=== PATIENT | female | born 1955 | race Caucasian/White ===

== ENCOUNTER 2023-10-21 21:07 | Inpatient (IN) | payer BC ==
[2023-10-21 21:15] VITALS: TEMP 97.9; BMI 24.5
[2023-10-22] MEDS ORDERED: METOCLOPRAMIDE HCL INJECTION 10 MG/2 ML VIAL IVPB ONE (00:18)
[2023-10-22] MEDS ORDERED: MECLIZINE HCL 25 MG TABLET (FP) PO ONE (00:18)
[2023-10-22] MEDS ORDERED: ACETAMINOPHEN 1000 MG/100 ML BAG IVPB ONE (00:18)
[2023-10-22] MEDS ORDERED: SODIUM CHLORIDE 0.9% 500 ML INFUS.BAG IV ONE (00:18)
[2023-10-22 00:47] LABS: BASO % 0.4 % (0-2.0); EOS % 0.5 % (0-4.5); HEMATOCRIT 40.2 % (32.4-45.2); HEMOGLOBIN 13.5 GM/dL (10.7-15.3); LYMPH % 24.1 % (8-40); MCH 28.5 pg (25.7-33.7); MCHC 33.6 g/dl (32.0-36.0); MEAN CELL VOLUME 84.7 fl (80-96); MEAN PLT VOLUME 8.1 fl (7.5-11.1); MONO % 6.7 % (3.8-10.2); NEUT % 68.3 % (42.8-82.8); PLATELET COUNT 381 10^3/uL (134-434); RBC 4.74 M/mm3 (3.60-5.2); RDW 13.1 % (11.6-15.6); WHITE BLOOD COUNT 9.8 K/mm3 (4.0-10.0)
[2023-10-22] MEDS ORDERED: METOCLOPRAMIDE HCL INJECTION 10 MG/2 ML VIAL ONE (00:49)
[2023-10-22] MEDS ORDERED: ACETAMINOPHEN INJECTION 100 ML IVPB ONE (00:49)
[2023-10-22] MEDS ORDERED: MECLIZINE HCL 25 MG TABLET (FP) ONE (00:49)
[2023-10-22 00:54] LABS: INR 1.11 (0.83-1.09); PROTHROMBIN TIME (PATIENT) 12.9 SEC (9.7-13.0)
[2023-10-22 00:57] LABS: ACTIVATED PTT 31.2 SECONDS (25.2-36.5)
[2023-10-22 01:04] LABS: POTASSIUM 3.4 mmol/L (3.5-5.1)
[2023-10-22 01:06] LABS: ALBUMIN 4.2 g/dl (3.4-5.0); BLOOD UREA NITROGEN 12.4 mg/dL (7-18); CALCIUM 9.3 mg/dL (8.5-10.1)
[2023-10-22 01:09] LABS: CREATININE 0.9 mg/dL (0.55-1.3)
[2023-10-22 01:11] LABS: BILIRUBIN,TOTAL 0.4 mg/dL (0.2-1); TOT PROT 8.4 g/dl (6.4-8.2)
[2023-10-22] MEDS ORDERED: ONDANSETRON 4 MG/2 ML VIAL IVPUSH ONE ×2 (02:40→03:59)
[2023-10-22] MEDS ORDERED: ONDANSETRON 4 MG/2 ML VIAL ONE ×2 (02:49→04:49)
[2023-10-22] MEDS ORDERED: ATORVASTATIN CA 80 MG TABLET (FP) PO ONE (03:28)
[2023-10-22] MEDS ORDERED: ASPIRIN 325 MG TABLET PO ONE (03:28)
[2023-10-22] MEDS ORDERED: ATORVASTATIN CA 80 MG TABLET (FP) ONE (03:52)
[2023-10-22] MEDS ORDERED: ASPIRIN 81 MG CHEWABLE TABLETS ONE (03:52)
[2023-10-22] MEDS ORDERED: KCL 10 MEQ IVPB 10 MEQ/100 ML INFUS.BAG IVPB ONE (06:50)
[2023-10-22] MEDS ORDERED: POTASSIUM CHLORIDE TABS 20 MEQ TABLET.ER (FP) PO ONE (06:50)
[2023-10-22 06:58] LABS: MAGNESIUM 2.4 mg/dL (1.8-2.4)
[2023-10-22] MEDS: POTASSIUM CHLORIDE TABS 20 MEQ TABLET.ER (FP) PO ONE ×2 (06:58→09:14)
[2023-10-22] MEDS: KCL 10 MEQ IVPB 10 MEQ/100 ML INFUS.BAG IVPB SCH ×2 (06:58→09:14)
[2023-10-22] MEDS ORDERED: LACTATED RINGERS SOLUTION 1,000 ML/1,000 ML INFUS.BAG IV SCH (07:00)
[2023-10-22 07:26] LABS: BASO % 0.3 % (0-2.0); EOS % 0.2 % (0-4.5); HEMATOCRIT 36.4 % (32.4-45.2); HEMOGLOBIN 12.2 GM/dL (10.7-15.3); LYMPH % 14.9 % (8-40); MCH 28.4 pg (25.7-33.7); MCHC 33.6 g/dl (32.0-36.0); MEAN CELL VOLUME 84.3 fl (80-96); MEAN PLT VOLUME 8.2 fl (7.5-11.1); MONO % 5.3 % (3.8-10.2); NEUT % 79.3 % (42.8-82.8); PLATELET COUNT 332 10^3/uL (134-434); RBC 4.31 M/mm3 (3.60-5.2); RDW 13.2 % (11.6-15.6); WHITE BLOOD COUNT 7.6 K/mm3 (4.0-10.0)
[2023-10-22 07:43] LABS: POTASSIUM 3.9 mmol/L (3.5-5.1)
[2023-10-22 07:46] LABS: CALCIUM 8.7 mg/dL (8.5-10.1); MAGNESIUM 2.2 mg/dL (1.8-2.4)
[2023-10-22 07:49] LABS: ALBUMIN 3.4 g/dl (3.4-5.0); BLOOD UREA NITROGEN 10.2 mg/dL (7-18)
[2023-10-22 07:50] LABS: CREATININE 0.8 mg/dL (0.55-1.3)
[2023-10-22 07:52] LABS: PHOSPHOROUS 2.9 mg/dL (2.5-4.9); TOT PROT 6.9 g/dl (6.4-8.2)
[2023-10-22 07:53] LABS: BILIRUBIN,TOTAL 0.8 mg/dL (0.2-1)
[2023-10-22] MEDS ORDERED: LEVOTHYROXINE NA 50 MCG TABLET (FP) PO SCH ×2 (08:00→10:00)
[2023-10-22] MEDS ORDERED: HEPARIN NA (PORCINE) 5,000 UNITS/ML 1ML VIAL ONE (09:18)
[2023-10-22] MEDS ORDERED: LEVOTHYROXINE NA 50 MCG TABLET (FP) ONE (09:18)
[2023-10-22] MEDS: HEPARIN NA (PORCINE) 5,000 UNITS/ML 1ML VIAL SQ SCH ×2 (09:28→14:16)
[2023-10-22 09:47] VITALS: BP 123/69; PULSE 53; RESP 18
[2023-10-22] MEDS ORDERED: ATORVASTATIN CA 10 MG TABLET (FP) PO SCH (22:00)
== END 2023-10-22 15:50 | disposition home or self-care (01) | DRG 149 ==
LOC: JER 21:07 → JERBED 10-22 05:01 → OBSVTOIN 10-22 05:16
PROVIDERS: ADMIT Internal Medicine; ATTEND Internal Medicine
DX: R42 Dizziness and giddiness (principal); E83.42 Hypomagnesemia; I65.22 Occlusion and stenosis of left carotid artery; E03.9 Hypothyroidism, unspecified; I10 Essential (primary) hypertension; E78.5 Hyperlipidemia, unspecified; E87.6 Hypokalemia; R26.81 Unsteadiness on feet; E53.8 Deficiency of other specified B group vitamins; G25.0 Essential tremor
CPT/HCPCS: 36415; 70450-TC; 70496-TC; 70498-TC; 71045-TC-FY; 80053; 80061; 82607; 83735; 84100; 84439; 84443; 84484; 85025; 85610; 85730; 86850; 86900; 86901; 93005; 93010; 93306-TC; 99285-25; G0378; J1644